=== PATIENT | female | born 1965 | race Caucasian/White ===

== ENCOUNTER → 2017-11-21 | Outpatient (CLI) | payer OTHER ==
[~2017-11-21] MED LIST: APAP500; NEXIUM40 MG PO; TRIAMTERENE-HC1 EAC1 PO
== END ==
LOC: RAD 10:15
DX: Z12.31 Encounter for screening mammogram for malignant neoplasm of breast (principal)

== ENCOUNTER → 2018-12-03 | Outpatient (CLI) | payer OTHER | LOC: RAD 11:41 | DX: Z12.31 Encounter for screening mammogram for malignant neoplasm of breast (principal) ==

== ENCOUNTER → 2019-10-17 | Outpatient (CLI) | payer OTHER | LOC: CAT 13:04 | DX: N28.1 Cyst of kidney, acquired (principal); N20.0 Calculus of kidney; N28.89 Other specified disorders of kidney and ureter; R16.2 Hepatomegaly with splenomegaly, not elsewhere classified; K76.0 Fatty (change of) liver, not elsewhere classified; K80.20 Calculus of gallbladder without cholecystitis without obstruction; Z90.49 Acquired absence of other specified parts of digestive tract ==

== ENCOUNTER → 2020-12-08 | Outpatient (CLI) | payer OTHER | LOC: RAD 13:14 | PROVIDERS: ATTEND Family Medicine | DX: Z12.31 Encounter for screening mammogram for malignant neoplasm of breast (principal) ==